=== PATIENT | male | born 1960 | race Caucasian/White ===

== ENCOUNTER 2018-08-16 11:55 | Emergency (ER) | payer MEDICAID ==
[~2018-08-16] VITALS: Ht 170.2 cm; Wt 89.4 kg
--- NOTE | 2018-08-16 11:55 | NUR ---
ED Nurse Note: patient brought in by ambulance RA 57 patient is from sober living facility, found altered and barely breathing patient did Heroine OD, 2 Narcan was given nasally. Upon arrival patient is alert awake x3 and ambulatory. Patient reports he did heroine nasally. unknown dose
[2018-08-16] MEDS ORDERED: Vancomycin 1 GM in NS 275 ML IV ONE (12:15)
[2018-08-16 12:47] VITALS: BP 123/66
--- NOTE | 2018-08-16 12:48 | NUR ---
ED Nurse Note: patient's O2 sat was dropping to 88%, respiratory rate of 11, notified Dr. Doll, received verbal order for Narcan 0.4 X1. given as ordered.
[2018-08-16] MEDS ORDERED: Naloxone 0.4mg/ml Inj IVP ONE (13:00)
[2018-08-16 13:04] LABS: BASOPHILS % (AUTO) 1.2 % (0.0-2.0); EOSINOPHILS % (AUTO) 4.3 % (0.0-3.0); HEMATOCRIT 40.4 % (42.0-52.0); HEMOGLOBIN 13.7 G/DL (14.2-18.0); LYMPHOCYTES % (AUTO) 12.7 % (20.0-45.0); MEAN CORPUSCULAR VOLUME 87 FL (80-99); MONOCYTES % (AUTO) 7.5 % (1.0-10.0); NEUTROPHILS % (AUTO) 74.3 % (45.0-75.0); PLATELET COUNT 244 K/UL (150-450); RED BLOOD COUNT 4.63 M/UL (4.70-6.10); RED CELL DISTRIBUTION WIDTH 13.8 % (11.6-14.8); WHITE BLOOD COUNT 7.3 K/UL (4.8-10.8)
[2018-08-16 13:12] LABS: ANION GAP 10 mmol/L (5-15); BLOOD UREA NITROGEN 32 mg/dL (7-18); CARBON DIOXIDE 28 MMOL/L (21-32); CHLORIDE 108 MMOL/L (98-107); CREATININE 1.1 MG/DL (0.55-1.30); POTASSIUM 3.4 MMOL/L (3.5-5.1); SODIUM 146 MMOL/L (136-145)
[2018-08-16 13:26] LABS: ALANINE AMINOTRANSFERASE 36 U/L (12-78); ALBUMIN 4.1 G/DL (3.4-5.0); ALBUMIN/GLOBULIN RATIO 1.2 (1.0-2.7); ALKALINE PHOSPHATASE 62 U/L (46-116); ASPARTATE AMINO TRANSFERASE 30 U/L (15-37); BILIRUBIN,TOTAL 0.6 MG/DL (0.2-1.0); CKMB 4.3 NG/ML (0.0-3.6); CREATINE KINASE 193 U/L (26-308)
[2018-08-16] MEDS ORDERED: Naloxone 1mg/ml 2ml IVP ONE (13:30)
--- NOTE | 2018-08-16 13:51 | NUR ---
ED Nurse Note: patient went to CT scan
--- NOTE | 2018-08-16 14:05 | NUR ---
ED Nurse Note: patient came back from CT
[2018-08-16 14:44] VITALS: BP 119/62
--- NOTE | 2018-08-16 15:09 | Diagnostic Imaging Report ---
Indications: Altered level of consciousness Technique: Spiral acquisitions obtained through the brain. Angled axial and coronal 5 x 5 mm slices were reconstructed. Total dose length product 1362.01 mGycm. CTDI vol(s) 70.38 mGy. Dose reduction achieved using automated exposure control Comparison: None. Findings: There is mild age-related enlargement of the ventricles and extra axial CSF spaces. There is minimal periventricular deep white matter low-attenuation, consistent with chronic microvascular ischemic change. No acute intracranial hemorrhage or edema, mass effect, nor midline shift. Visualized orbits are unremarkable. There is ethmoid sinus disease. The mastoids are clear. The calvarium is intact. Impression: Mild age-related volume loss. Negative for acute intracranial bleed or mass effect Periventricular deep white matter low-attenuation, consistent with microvascular chronic ischemic changes. Ethmoid sinus disease incidentally noted. The CT scanner at [facility] is accredited by the [employer] and the scans are performed using protocols designed to limit radiation exposure to as low as reasonably achievable to attain images of sufficient resolution adequate for diagnostic evaluation.
--- NOTE | 2018-08-16 16:00 | Emergency Room Report ---
History of Present Illness General Chief Complaint: Overdose Source: Patient, EMS Present Illness HPI This patient resides in a sober living facility. He has brought in by EMS. EMS were called because patient was found passed out and unresponsive with needles around him consistent with heroin overdose. EMS gave the patient Narcan intranasally and the patient immediately woke up. The patient himself states that he hit his head recently but otherwise has no specific complaints. Allergies: Coded Allergies: No Known Allergies (Unverified , 08/16/18) Patient History Past Medical History: see triage record, GERD Social History: Reports: drug use - Heroin Reviewed Nursing Documentation: PMH: Agreed; PSxH: Agreed Nursing Documentation-PMH Past Medical History: No History, Except For Hx Gastrointestinal Problems: Yes - GERD Review of Systems All Other Systems: negative except mentioned in HPI Physical Exam Vital Signs Date Time Temp Pulse Resp B/P (MAP) Pulse Ox O2 Delivery O2 Flow Rate FiO2 08/16/18 11:47 97.9 107 18 151/94 (113) 98 Room Air Sp02 EP Interpretation: reviewed, normal General Appearance: no apparent distress, alert, GCS 15, non-toxic Head: normocephalic, atraumatic Eyes: bilateral eye normal inspection, bilateral eye PERRL ENT: hearing grossly normal, normal pharynx, no angioedema, normal voice Neck: full range of motion, supple/symm/no masses Respiratory: chest non-tender, lungs clear, normal breath sounds, no respiratory distress, no retraction, no accessory muscle use, speaking full sentences Cardiovascular #1: no edema, tachycardia Gastrointestinal: normal bowel sounds, non tender, soft, non-distended, no guarding, no rebound Rectal: deferred Musculoskeletal: back normal, gait/station normal, normal range of motion Neurologic: alert, oriented x3, responsive, motor strength/tone normal, sensory intact, speech normal Psychiatric: judgement/insight normal, memory normal, mood/affect normal, no suicidal/homicidal ideation Skin: warm/dry, well hydrated, other - LLE with area of erythema surrounding what appears c/w an injection/popping site. Medical Decision Making Diagnostic Impression: Primary Impression: Heroin overdose Additional Impression: Cellulitis ER Course This patient presents with acute heroin overdose. The patient's laboratory workup was noncontributory. There is no evidence of trauma or injury on physical examination of this patient. CT head negative. Patient did require multiple rounds of Narcan in the emergency department. However he stabilized alert for a couple hours without needing any re-dosing of Narcan. The patient was clinically sober and alert at the time of discharge. No acute emergency medical condition is identified. The patient was educated on the dangers of heroin abuse and intoxication. The patient does have a mild cellulitis on the left lower extremity. I will place the patient on a course of antibiotics. I do not feel this patient needs admission for this particular condition and would likely respond to outpatient therapy. The patient is given close return precautions and follow-up instructions. Laboratory Tests Test 08/16/18 12:06 White Blood Count 7.3 K/UL (4.8-10.8) Red Blood Count 4.63 M/UL (4.70-6.10) L Hemoglobin 13.7 G/DL (14.2-18.0) L Hematocrit 40.4 % (42.0-52.0) L Mean Corpuscular Volume 87 FL (80-99) Mean Corpuscular Hemoglobin 29.7 PG (27.0-31.0) Mean Corpuscular Hemoglobin Concent 34.0 G/DL (32.0-36.0) Red Cell Distribution Width 13.8 % (11.6-14.8) Platelet Count 244 K/UL (150-450) Mean Platelet Volume 6.0 FL (6.5-10.1) L Neutrophils (%) (Auto) 74.3 % (45.0-75.0) Lymphocytes (%) (Auto) 12.7 % (20.0-45.0) L Monocytes (%) (Auto) 7.5 % (1.0-10.0) Eosinophils (%) (Auto) 4.3 % (0.0-3.0) H Basophils (%) (Auto) 1.2 % (0.0-2.0) Sodium Level 146 MMOL/L (136-145) H Potassium Level 3.4 MMOL/L (3.5-5.1) L Chloride Level 108 MMOL/L (98-107) H Carbon Dioxide Level 28 MMOL/L (21-32) Anion Gap 10 mmol/L (5-15) Blood Urea Nitrogen 32 mg/dL (7-18) H Creatinine 1.1 MG/DL (0.55-1.30) Estimate Glomerular Filtration Rate > 60 mL/min (>60) Glucose Level 152 MG/DL (74-106) H Lactic Acid Level 0.90 mmol/L (0.4-2.0) Calcium Level 9.0 MG/DL (8.5-10.1) Total Bilirubin 0.6 MG/DL (0.2-1.0) Aspartate Amino Transferase (AST) 30 U/L (15-37) Alanine Aminotransferase (ALT) 36 U/L (12-78) Alkaline Phosphatase 62 U/L (46-116) Total Creatine Kinase 193 U/L (26-308) Creatine Kinase MB 4.3 NG/ML (0.0-3.6) H Creatine Kinase MB Relative Index 2.2 Troponin I 0.000 ng/mL (0.000-0.056) Total Protein 7.6 G/DL (6.4-8.2) Albumin 4.1 G/DL (3.4-5.0) Globulin 3.5 g/dL Albumin/Globulin Ratio 1.2 (1.0-2.7) EKG Diagnostic Results Rate: normal Rhythm: NSR ST Segments: no acute changes Rhythm Strip Diag. Results EP Interpretation: yes Rate: 100's Rhythm: NSR, no PVC's, no ectopy Last Vital Signs Date Time Temp Pulse Resp B/P (MAP) Pulse Ox O2 Delivery O2 Flow Rate FiO2 08/16/18 14:44 97.9 95 12 119/62 93 Room Air Status: improved Disposition: HOME, SELF-CARE Condition: Improved Referrals: NON PHYSICIAN (PCP) Haydee Doll DO Aug 16, 2018 16:00
[2018-08-16] MEDS ORDERED: DOXYCYCLINE MO100 MG ORAL (16:01)
[2018-08-16 18:20] VITALS: BP 123/68
--- NOTE | 2018-08-16 18:30 | NUR ---
ED Nurse Note: patient is ambulatory with steady gait. RN educated about stop abusing heroine, patient needed reinforcement. provided patient with clothings. patient reports his chest is hurting. patient has been on the monitored bed throught out the stay sinus rhythm on the monitor, patient's vitals stable, no other symptoms noted. Dr. Nieves notified, nno.
--- NOTE | 2018-08-16 18:31 | NUR ---
ED Nurse Note: Dr. Jayda crockett for no ua collection at this time.
--- NOTE | 2018-08-16 18:34 | NUR ---
ER DISCHARGE NOTE: Patient is cleared to be discharged per ERMD Dr. Shelton, pt is aox4, on room air, with stable vital signs. pt was given dc and prescription instructions, pt was able to verbalize understanding, pt id band and iv site removed without complications. pt is able to ambulate with steady gait. pt took all belongings.
[2018-08-16 18:39] VITALS: BP 123/68
--- NOTE | 2018-08-19 13:53 | Cardiology Report ---
APPROVED REPORT EKG Measurement Heart [id number] Normal sinus rhythm Normal ECG
== END 2018-08-16 18:37 | disposition home or self-care (01) ==
LOC: EDBD 11:55 → EMR 14:30
DX: T40.1X1A Poisoning by heroin, accidental (unintentional), initial encounter (principal); Y92.9 Unspecified place or not applicable; K21.9 Gastro-esophageal reflux disease without esophagitis; L03.116 Cellulitis of left lower limb; J32.2 Chronic ethmoidal sinusitis
CPT/HCPCS: 36415; 70450; 80053; 82550; 82553; 83605; 84484; 85025; 87040; 87181; 93005; 96361; 96365; 96375; 99284; J2310; J3370; J7050